=== PATIENT | male | born 1970 | race Caucasian/White ===

== ENCOUNTER 2021-01-25 03:23 | Emergency (ER) | payer BC ==
[~2021-01-25] VITALS: Ht 188 cm; Wt 113.4 kg
[2021-01-25] MEDS ORDERED: ZOFRAN4 MG PO (05:12)
== END 2021-01-25 05:27 | disposition home or self-care (01) ==
LOC: ED 03:23
DX: U07.1 COVID-19 (principal)
CPT/HCPCS: 71046; 80053; 81001; 83735; 85025; 99285-25; C9803; J7030; U0003